=== PATIENT | male | born 1990 | race Caucasian/White ===

== ENCOUNTER 2025-01-17 16:48 | Outpatient (CLI) | payer BC, SELFPAY ==
--- NOTE | ~2025-01-17 | US_ITS ---
EXAMINATION: US retroperitoneal comp DATE: 01/17/2025 17:20 INDICATION: Hydronephrosis TECHNIQUE: Multiple ultrasound grayscale images of the kidneys were obtained. COMPARISON: None. FINDINGS: The right kidney measures 10.0 x 4.2 x 5.1 cm. The left kidney measures 10.1 x 5.0 x 4.2 cm. The kidn eys demonstrate normal echogenicity. There is no hydronephrosis in either kidney. No stones identifi ed. The bladder is normal. IMPRESSION: 1. Normal kidneys without hydronephrosis. Reviewed, dictated and finalized at location B.
--- OUTSIDE RECORDS SUMMARY | 2025-01-17 17:14 | XMS_ITS | Clinical Summary ---
Author Organization [facility] / [facility] Address [facility] [address] Care Team Providers Care Scaffold Setter Name Role Phone Jennifer Lafleur DO Primary Care Provider [phone] Aparna Foster MD Unavailable [phone] Allergies No known active allergies Medications No known medications Active Problems Problem Noted Date Diagnosed Date Eosinophilic esophagitis 05/08/2021 Clavicle pain 10/03/2014 Pain of foot 03/07/2014 Encounters Date Type Department Care Team Description 12/29/2024 Scan HEALTH INFO SRVCS Scanned, Doc Med Group 11/25/2024 Results Follow-Up [facility] Family Medicine - [address], [address] [place] [phone] Jennifer Lafleur DO US RETROPERITONEAL COMP 11/18/2024 7:00 AM CDT - 11/18/2024 11:59 PM CDT Hospital Encounter [facility] Ultrasound [address] [place] [address] Jennifer Lafleur DO Discharge Disposition: Home or Self Care (Routine Discharge) 11/18/2024 Travel 11/15/2024 3:45 PM CDT Office Visit [facility] Physical Therapy [address] [place] [address] Jennifer Lafleur DO Meyer, Debra S, STATE APPELLATE CLERK Cerv Radiculitis 11/15/2024 Travel 11/15/2024 MyChart Message Enc [facility] [address], [address] [place] [address] Jennifer Lafleur DO Vaccinations for travel 11/11/2024 Telephone [facility] [address], [address] [place] [address] Jennifer Lafleur DO MRI Results (C-spine and T-spine ) 11/08/2024 3:45 PM CDT Office Visit [facility] Physical Therapy [address] [place] [id number] Jennifer Lafleur DO Meyer, Debra S, STATE APPELLATE CLERK Cerv Radiculitis 11/08/2024 Travel 11/05/2024 8:06 AM CDT - 11/05/2024 11:59 PM CDT Hospital Encounter [facility] Open MRI [address] [place] [address] Jennifer Lafleur DO Discharge Disposition: Home or Self Care (Routine Discharge) 11/05/2024 Travel 11/01/2024 3:30 PM CDT Office Visit [facility] Physical [facility] [address] [place] [id number] Jennifer Lafleur DO Tolle, Lisa C, PT Cerv Radiculitis 11/01/2024 Travel 10/26/2024 Telephone [facility] [address] [place] [address] Jennifer Lafleur DO Results (Sed rate, Uric acid, C-reactive protein, CMP, Rheumatoid factor, Vitamin D, CBC, Xray cervical and thoracic ) 10/25/2024 2:20 PM CDT - 10/25/2024 11:59 PM CDT Hospital Encounter [facility] Laboratory [address] [place] [address] Janiya, Jennifer, DO Discharge Disposition: Home or Self Care (Routine Discharge) 10/25/2024 2:19 PM CDT Hospital Encounter [facility] [address] [place] [address] Radha Lafleura, DO Discharge Disposition: Home or Self Care (Routine Discharge) 10/25/2024 1:00 PM CDT Office Visit [facility] Family Medicine - [place] [address] [place] [address] Jennifer Lafleur, DO Back Pain (Pt here for extreme back pain in upper back area and lower neck area on left side. [facility] lab) 10/25/2024 Scan [facility] HEALTH INFO SRVCS Scanned, Doc Med Group 10/25/2024 Travel from Last 3 Months Immunizations Immunization Administration Dates Next Due Fluzone 6 Months+ Quad (0.5 mL Prefilled Syringe) 07/08/2023 Fluzone Intradermal (IIV3) 08/11/2012 Hepatitis B 1992,1992,1992 Influenza (Generic) 08/11/2012 Influenza Adult (Generic) 05/01/2020 MENINGOCOCCAL A C Y&W-135 ol igosaccharide (MENVEO) 01/11/2009 MMR (Generic) 11/02/1996,06/12/1993 MODERNA COVID-19 (12+) MRNA, LNP-S, PF, 100 MCG/ 0.5 ML DOSE 12/01/2020,11/03/2020 PFIZER COVID-19 (12+) MRNA, LNP-S, PF, YENI-SUCROSE, 30 MCG/0.3 ML (COMIRNATY) 07/08/2023 Tdap (Generic) 02/11/2006 Family History Medical History Relation Comments Heart Disease Father Hypertension Father skin cancer Maternal Grandfather Rheumatoid Arthritis Maternal Grandmother Rheumatoid Arthritis Maternal Uncle Asthma Mother Diabetes Paternal Grandfather Hypertension Paternal Grandfather Multiple Sclerosis Paternal Grandmother Relation Status Comments Father Maternal Grandfather Maternal Grandmother Maternal Uncle Mother Paternal Grandfather Paternal Grandmother Social History Tobacco Use Types Packs/Day Years Used Date Smoking Tobacco: Never Smokeless Tobacco: Never Tobacco Cessation:Counseling Given: No Alcohol Use Standard Drinks/Week Comments Yes 0 (1 standard drink = 0.6 oz pur e alcohol) occasional PHQ-2 Answer Date Recorded Patient Health Questionnaire-2 Score 0 10/25/2024 Sex and Gender Information Value Date Recorded Sex Assigned at Male 10/25/2024 1:33 PM CDT Legal Sex Male 8:03 PM CDT Gender Identity Male 10/25/2024 1:33 PM CDT Sexual Orientation Not on file Last Filed Vital Signs Vital Sign Reading Time Taken Comments Blood Pressure 120/84 10/25/2024 1:33 PM CDT Pulse 78 10/25/2024 1:33 PM CDT Temperature 36.5 C (97.7 F) 10/25/2024 1:33 PM CDT Respiratory Rate 18 10/25/2024 1:33 PM CDT Oxygen Saturation 96% 10/25/2024 1:33 PM CDT Inhaled Oxygen Concentration - - Weight 101.9 kg (224 lb 9.6 oz) 10/25/2024 1:33 PM CDT Height 188 cm (6' 2) 10/25/2024 1:33 PM CDT Body Mass Index 28.84 10/25/2024 1:33 PM CDT Plan of Treatment Upcoming Encounters Date Type Department Care Team (Late st Contact Info) Description 02/10/2025 2:20 PM CDT Office Visit [facility]ialty [facility] - [facility] [facility] [address] [place] [id number] Dayna Metzger MD [address] [facility] [place] [address] [place] [address] Health Maintenance Due Date Last Done Comments Hepatitis C 01/04/2010 DTaP, Tdap and Td Vaccines ( 2 - Td or Tdap) 02/12/2016 02/11/2006 Annual Physical 11/01/2021 11/01/2020 COVID-19 Vaccine (2023-2 5 season) 2024 07/08/2023, 12/01/2020, 11/03/2020 Hepatitis B Vaccines Completed 1992, 1992, 1992 Meningococcal Vaccine Completed 01/11/2009 PHQ-2 (Physician [place]) Completed 10/25/2024 HPV Vaccines Aged Out No longer eligi ble based on patient's age to complete this topic Meningococcal B Vaccine Aged Out No l onger eligible based on patient's age to complete this topic Pneumococcal Vaccine: Pediatrics (0 to 5 Years) and At-Risk Patients (6 to 49 Years) Aged Out No longer eligible b ased on patient's age to complete this topic RSV Immunizations Under 20 Months Aged Out No longer eligible b ased on patient's age to complete this topic Procedures Procedure Name Priority Date/Time Associated Diagnosis Comments US RETROPERITONEAL COMP Routine 11/19/19 8:26 AM CDT CKD (chronic kidney disease) stage 2, GFR 60-89 ml/min Elevated creatine kinase MRI THOR SPINE WO CON CHRISTIANE 11/05/2024 9:39 AM CDT Vitamin D deficiency Neck pain Acute left-sided thoracic back pain Tingling MRI CERV SPINE WO CON CHRISTIANE 11/05/2024 8:58 AM CDT Vitamin D deficiency Neck pain Acute left-sided thoracic back pain Tingling XR THOR SPINE 3V Routine 10/25/2024 2:53 PM CDT Vitamin D deficiency Neck pain Acute left-sided thoracic back pain Tingling XR CERV SPINE 3V Routine 10/25/2024 2:53 PM CDT Vitamin D deficiency Neck pain Acute left-sided thoracic back pain [place]ing[place] C-REACTIVE PROTEIN Routine 10/25/2024 2: 26 PM CDT Neck pain Acute left-sided thoracic back pain URIC ACID BLOOD Routine 10/25/2024 2:26 PM CDT Vitamin D deficiency Neck pain Acute left-sided thoracic back pain Ting[place] VITAMIN D, 25 OH Routine 10/25/2024 2:26 PM CDT Vitamin D deficiency SED RATE, ERYTHROCYTE (ESR) Routine 10/25/2024 2:26 PM CDT Vitamin D deficiency Neck pain Acute left-sided thoracic back pain [place] RHEUMATOID FACTOR, QUANT Routine 10/25/2024 2:26 PM CDT Vitamin D deficiency Neck pain Acute left-sided thoracic back pain [place]ling COMPREHENSIVE METABOLIC PANEL Routine 10/25/2024 2:26 PM CDT Vitamin D deficiency Neck pain Acute left-sided thoracic back pain Tingling CBC W/DIFF AUTOMATED Routine 10/25/2024 2:26 PM CDT Vitamin D deficiency Neck pain Acute left-sided thoracic back pain Tingling from Last 3 Months Results * US RETROPERITONEAL COMP (11/18/2024 8:26 AM CDT) Anatomical Region Laterality Modality Abdomen Ultrasound 11/25/2024 7:37 AM CDT Impressions 11/25/2024 7:39 AM CDT IMPRESSION: ===== 1. Mild right hydronephrosis with dilated proximal visualized right ureter. Distal ureteral obstruction is of concern. 2. No acute left renal or bladder abnormalities. Referred By: JENNIFER LAFLEUR Interpreted By: Vikram Cisneros MD, 11/25/2024 7:37 AM Narrative 11/25/2024 7:39 AM CDT [address] [address] EXAMINATION: Renal ultrasound EXAM DATE/TIME: 11/18/2024 7:13 AM REASON FOR EXAM: Chronic kidney disease, elevated creatine COMPARISON: None TECHNIQUE: Transabdominal ultrasound evaluation of the bilateral kidneys and bladder was performed for analysis of grayscale and color Doppler imaging characteristics. FINDINGS: The right kidney measures 10.3 x 4.5 x 4.5 cm per the left kidney measures 10.5 x 4.3 x 6.1 cm. Bladder contours are smooth. Both ureteral jets are seen. The IVC is patent. Visualized portion of liver is unremarkable. There is minimal hydronephrosis on the right with dilated proximal right ureter measuring up to 8.5 mm. No abnormal cystic or masslike lesions in the right kidney. Normal flow on Doppler imaging to the right kidney. Left kidney shows no hydronephrosis. There is normal flow to the left kidney on Doppler imaging. No abnormal cystic or masslike lesions are seen in the left kidney. Visualized portion of the spleen has normal grayscale appearance. No perinephric fluid collections on either side. ===== Procedure Note Vikram Cisneros MD - 11/25/[address] [address] EXAMINATION: Renal ultrasound EXAM DATE/TIME: 11/18/2024 7:13 AM REASON FOR EXAM: Chronic kidney disease, elevated creatine COMPARISON: None TECHNIQUE: Transabdominal ultrasound evaluation of the bilateral kidneysand bladder was performed for analysis of grayscale and color Dopplerimaging characteristics. FINDINGS: The right kidney measures 10.3 x 4.5 x 4.5 cm per the left kidney [id number] x 4.3 x 6.1 cm. Bladder contours are smooth. Both ureteral jets areseen. The IVC is patent. Visualized portion of liver is unremarkable.There is minimal hydronephrosis on the right with dilated proximal rightureter measuring up to 8.5 mm. No abnormal cystic or masslike lesions inthe right kidney. Normal flow on Doppler imaging to the right kidney.Left kidney shows no hydronephrosis. There is normal flow to the leftkidney on Doppler imaging. No abnormal cystic or masslike lesions areseen in the left kidney. Visualized portion of the spleen has normalgrayscale appearance. No perinephric fluid collections on either side. ===== IMPRESSION: ===== 1. Mild right hydronephrosis with dilated proximal visualized rightureter. Distal ureteral obstruction is of concern. 2. No acute left renal or bladder abnormalities. Referred By: JENNIFER LAFLEUR Interpreted By: Vikram Cisneros MD, 11/25/2024 7:37 AM Jennifer Lafleur DO ULTRASOUND Final Result * MRI THOR SPINE WO CON (11/05/2024 9:39 AM CDT) Anatomical Region Laterality Modality Spine Magnetic Resonan ce 11/05/2024 9:27 AM CDT Impressions 11/05/2024 9:55 AM CDT IMPRESSION: 1. Mild multilevel cervical and thoracic spondylosis, as described above. 2. Prominence of the central canal of the thoracic spinal cord measuring up to 2 mm at T6. This prominence of the central canal tapers from the T4 to the T9 level. Findings could be related to canal prominence versus a small syrinx. Consider follow-up MRI thoracic spine with contrast in 6 months for further characterization, unless symptoms warrant sooner characterization. Ordered By: JENNIFER LAFLEUR Interpreted By: Wilfrido Mayer MD, 11/05/2024 9:27 AM Narrative 11/05/2024 9:55 AM CDT [address] [address] EXAMINATION: MRI cervical spine, MRI thoracic spine [id number] EXAM DATE/TIME: 11/05/2024 8:32 AM REASON FOR EXAM: neck and upper back pain COMPARISON: Cervical and thoracic spine radiographs 10/25/2024 TECHNIQUE: Mutiplanar, multisequence MRI of the cervical and thoracic spine were obtained without the use of an IV contrast agent. FINDINGS: MRI CERVICAL SPINE: There is straightening of the normal cervical lordosis that is likely positional. The cervical vertebral bodies and facets are well aligned. The cervical vertebral body heights are preserved. There is intervertebral disc height loss at C5-6 with endplate degenerative change at this level. The cervical spinal cord has a normal signal throughout its course. C2-3: No significant spinal canal or neural foraminal stenosis. C3-4: No significant spinal canal or neural foraminal stenosis. C4-5: No significant spinal canal stenosis. Uncovertebral joint hypertrophy. Mild to moderate left neural foraminal stenosis. Mild right neural foraminal stenosis. C5-6: Disc bulge with right paracentral disc protrusion impressing the ventral thecal sac. Mild to moderate spinal canal stenosis. Uncovertebral joint hypertrophy. Mild to moderate left neural foraminal stenosis. Mild right neural foraminal stenosis. C6-7: No significant spinal canal or neural foraminal stenosis. C7-T1: No significant spinal canal or neural foraminal stenosis. MRI THORACIC SPINE: There are 12 rib-bearing thoracic type vertebral bodies. Thoracic vertebral bodies and facets are well aligned. The thoracic vertebral body heights are preserved. Facet joint hypertrophy contributes to to moderate right T1 to neural foraminal stenosis and mild left T1 to neural foraminal stenosis. Facet joint hypertrophy contributes to mild left T6-7 and bilateral T7-8 neural foraminal stenosis. Mild to moderate right greater than left T8-9 stenosis secondary to facet joint hypertrophy. The thoracic spinal cord otherwise has a normal signal throughout its course. There is prominence of the central canal of the thoracic spinal cord measuring up to 2 mm at T6 (best seen on series 8 image 24). This prominence of the central canal tapers from the T4 to the T9 level. Procedure Note Wilfrido Mayer MD - 11/05/[address] [address] EXAMINATION: MRI cervical spine, MRI thoracic spine [id number] EXAM DATE/TIME: 11/05/2024 8:32 AM REASON FOR EXAM: neck and upper back pain COMPARISON: Cervical and thoracic spine radiographs 10/25/2024 TECHNIQUE: Mutiplanar, multisequence MRI of the cervical and thoracicspine were obtained without the use of an IV contrast agent. FINDINGS: MRI CERVICAL SPINE: There is straightening of the normal cervical lordosisthat is likely positional. The cervical vertebral bodies and facets arewell aligned. The cervical vertebral body heights are preserved. There isintervertebral disc height loss at C5-6 with endplate degenerative changeat this level. The cervical spinal cord has a normal signal throughout itscourse. C2-3: No significant spinal canal or neural foraminal stenosis. C3-4: No significant spinal canal or neural foraminal stenosis. C4-5: No significant spinal canal stenosis. Uncovertebral jointhypertrophy. Mild to moderate left neural foraminal stenosis. Mild rightneural foraminal stenosis. C5-6: Disc bulge with right paracentral disc protrusion impressing theventral thecal sac. Mild to moderate spinal canal stenosis. Uncovertebraljoint hypertrophy. Mild to moderate left neural foraminal stenosis. Mildright neural foraminal stenosis. C6-7: No significant spinal canal or neural foraminal stenosis. C7-T1: No significant spinal canal or neural foraminal stenosis. MRI THORACIC SPINE: There are 12 rib-bearing thoracic type vertebralbodies. Thoracic vertebral bodies and facets are well aligned. Thethoracic vertebral body heights are preserved. Facet joint hypertrophycontributes to to moderate right T1 to neural foraminal stenosis and mildleft T1 to neural foraminal stenosis. Facet joint hypertrophy contributesto mild left T6-7 and bilateral T7-8 neural foraminal stenosis. Mild tomoderate right greater than left T8-9 stenosis secondary to facet jointhypertrophy. The thoracic spinal cord otherwise has a normal signalthroughout its course. There is prominence of the central canal of thethoracic spinal cord measuring up to 2 mm at T6 (best seen on series 8image 24). This prominence of the central canal tapers from the T4 to theT9 level. IMPRESSION: 1. Mild multilevel cervical and thoracic spondylosis, as describedabove. 2. Prominence of the central canal of the thoracic spinal cord measuringup to 2 mm at T6. This prominence of the central canal tapers from the T4to the T9 level. Findings could be related to canal prominence versus asmall syrinx. Consider follow-up MRI thoracic spine with contrast in 6months for further characterization, unless symptoms warrant soonercharacterization. Ordered By: JENNIFER LAFLEUR Interpreted By: Wilfrido Mayer MD, 11/05/2024 9:27 AM us Jennifer Lafleur DO MRI Final Result * MRI CERV SPINE WO CON (11/05/2024 8:58 AM CDT) Anatomical Region Laterality Modality Spine Magnetic Resonan ce 11/05/2024 9:27 AM CDT Impressions 11/05/2024 9:55 AM CDT IMPRESSION: 1. Mild multilevel cervical and thoracic spondylosis, as described above. 2. Prominence of the central canal of the thoracic spinal cord measuring up to 2 mm at T6. This prominence of the central canal tapers from the T4 to the T9 level. Findings could be related to canal prominence versus a small syrinx. Consider follow-up MRI thoracic spine with contrast in 6 months for further characterization, unless symptoms warrant sooner characterization. Ordered By: JENNIFER LAFLEUR Interpreted By: Wilfrido Mayer MD, 11/05/2024 9:27 AM Narrative 11/05/2024 9:55 AM CDT [address] [address] EXAMINATION: MRI cervical spine, MRI thoracic spine [id number] EXAM DATE/TIME: 11/05/2024 8:32 AM REASON FOR EXAM: neck and upper back pain COMPARISON: Cervical and thoracic spine radiographs 10/25/2024 TECHNIQUE: Mutiplanar, multisequence MRI of the cervical and thoracic spine were obtained without the use of an IV contrast agent. FINDINGS: MRI CERVICAL SPINE: There is straightening of the normal cervical lordosis that is likely positional. The cervical vertebral bodies and facets are well aligned. The cervical vertebral body heights are preserved. There is intervertebral disc height loss at C5-6 with endplate degenerative change at this level. The cervical spinal cord has a normal signal throughout its course. C2-3: No significant spinal canal or neural foraminal stenosis. C3-4: No significant spinal canal or neural foraminal stenosis. C4-5: No significant spinal canal stenosis. Uncovertebral joint hypertrophy. Mild to moderate left neural foraminal stenosis. Mild right neural foraminal stenosis. C5-6: Disc bulge with right paracentral disc protrusion impressing the ventral thecal sac. Mild to moderate spinal canal stenosis. Uncovertebral joint hypertrophy. Mild to moderate left neural foraminal stenosis. Mild right neural foraminal stenosis. C6-7: No significant spinal canal or neural foraminal stenosis. C7-T1: No significant spinal canal or neural foraminal stenosis. MRI THORACIC SPINE: There are 12 rib-bearing thoracic type vertebral bodies. Thoracic vertebral bodies and facets are well aligned. The thoracic vertebral body heights are preserved. Facet joint hypertrophy contributes to to moderate right T1 to neural foraminal stenosis and mild left T1 to neural foraminal stenosis. Facet joint hypertrophy contributes to mild left T6-7 and bilateral T7-8 neural foraminal stenosis. Mild to moderate right greater than left T8-9 stenosis secondary to facet joint hypertrophy. The thoracic spinal cord otherwise has a normal signal throughout its course. There is prominence of the central canal of the thoracic spinal cord measuring up to 2 mm at T6 (best seen on series 8 image 24). This prominence of the central canal tapers from the T4 to the T9 level. Procedure Note Wilfrido Mayer MD - 11/05/[address] [address] EXAMINATION: MRI cervical spine, MRI thoracic spine [id number] EXAM DATE/TIME: 11/05/2024 8:32 AM REASON FOR EXAM: neck and upper back pain COMPARISON: Cervical and thoracic spine radiographs 10/25/2024 TECHNIQUE: Mutiplanar, multisequence MRI of the cervical and thoracicspine were obtained without the use of an IV contrast agent. FINDINGS: MRI CERVICAL SPINE: There is straightening of the normal cervical lordosisthat is likely positional. The cervical vertebral bodies and facets arewell aligned. The cervical vertebral body heights are preserved. There isintervertebral disc height loss at C5-6 with endplate degenerative changeat this level. The cervical spinal cord has a normal signal throughout itscourse. C2-3: No significant spinal canal or neural foraminal stenosis. C3-4: No significant spinal canal or neural foraminal stenosis. C4-5: No significant spinal canal stenosis. Uncovertebral jointhypertrophy. Mild to moderate left neural foraminal stenosis. Mild rightneural foraminal stenosis. C5-6: Disc bulge with right paracentral disc protrusion impressing theventral thecal sac. Mild to moderate spinal canal stenosis. Uncovertebraljoint hypertrophy. Mild to moderate left neural foraminal stenosis. Mildright neural foraminal stenosis. C6-7: No significant spinal canal or neural foraminal stenosis. C7-T1: No significant spinal canal or neural foraminal stenosis. MRI THORACIC SPINE: There are 12 rib-bearing thoracic type vertebralbodies. Thoracic vertebral bodies and facets are well aligned. Thethoracic vertebral body heights are preserved. Facet joint hypertrophycontributes to to moderate right T1 to neural foraminal stenosis and mildleft T1 to neural foraminal stenosis. Facet joint hypertrophy contributesto mild left T6-7 and bilateral T7-8 neural foraminal stenosis. Mild tomoderate right greater than left T8-9 stenosis secondary to facet jointhypertrophy. The thoracic spinal cord otherwise has a normal signalthroughout its course. There is prominence of the central canal of thethoracic spinal cord measuring up to 2 mm at T6 (best seen on series 8image 24). This prominence of the central canal tapers from the T4 to theT9 level. IMPRESSION: 1. Mild multilevel cervical and thoracic spondylosis, as describedabove. 2. Prominence of the central canal of the thoracic spinal cord measuringup to 2 mm at T6. This prominence of the central canal tapers from the T4to the T9 level. Findings could be related to canal prominence versus asmall syrinx. Consider follow-up MRI thoracic spine with contrast in 6months for further characterization, unless symptoms warrant soonercharacterization. Ordered By: JENNIFER LAFLEUR Interpreted By: Wilfrido Mayer MD, 11/05/2024 9:27 AM us Jennifer Lafleur DO MRI Final Result * XR THOR SPINE 3V (10/25/2024 2:53 PM CDT) Anatomical Region Laterality Modality Spine Radiographic [place] ging 10/26/2024 4:55 AM CDT Impressions 10/26/2024 4:57 AM CDT IMPRESSION: No acute osseous abnormality of the thoracic spine. Referred By: Interpreted By: Connor Villa MD, 10/26/2024 4:55 AM Narrative 10/26/2024 4:57 AM CDT [address] [address] Examination: XR THOR SPINE 3V Exam time: 10/25/2024 2:29 PM Clinical history: Thoracic pain. Comparison: No comparison. Technique: 3 views of the thoracic spine. Findings: There is normal alignment of the thoracic spine. Vertebral body heights and disc spaces appear normal. No fracture or destructive bone lesions noted. Procedure Note Connor Villa MD - 10/26/[address] [address] Examination: XR THOR SPINE 3V Exam time: 10/25/2024 2:29 PM Clinical history: Thoracic pain. Comparison: No comparison. Technique: 3 views of the thoracic spine. Findings: There is normal alignment of the thoracic spine. Vertebral body heightsand disc spaces appear normal. No fracture or destructive bone lesionsnoted. IMPRESSION: No acute osseous abnormality of the thoracic spine. Referred By: Interpreted By: Connor Villa MD, 10/26/2024 4:55 AM us Jennifer Janiya DO GENERAL IMAGING Final Result * XR CERV SPINE 3V (10/25/2024 2:53 PM CDT) Anatomical Region Laterality Modality Spine Radiographic [place] ging 10/26/2024 4:57 AM CDT Impressions 10/26/2024 4:59 AM CDT IMPRESSION: No acute osseous abnormality of the cervical spine. Referred By: Interpreted By: Connor Villa MD, 10/26/2024 4:57 AM Narrative 10/26/2024 4:59 AM CDT [address] [address] Examination: XR CERV SPINE 3V Exam time: 10/25/2024 2:29 PM Clinical history: Pain. Comparison: No comparison. Technique: 3 views of the cervical spine. Findings: Straightening and slight reversal of the normal cervical lordosis. Cervical vertebral body heights and disc spaces appear preserved. The lateral masses are well aligned with the odontoid process. No fracture or destructive bone lesion noted. Procedure Note Connor Villa MD - 10/26/[address] [address] Examination: XR CERV SPINE 3V Exam time: 10/25/2024 2:29 PM Clinical history: Pain. Comparison: No comparison. Technique: 3 views of the cervical spine. Findings: Straightening and slight reversal of the normal cervical lordosis.Cervical vertebral body heights and disc spaces appear preserved. Thelateral masses are well aligned with the odontoid process. No fracture ordestructive bone lesion noted. IMPRESSION: No acute osseous abnormality of the cervical spine. Referred By: Interpreted By: Connor Villa MD, 10/26/2024 4:57 AM us Jennifer Janiya DO GENERAL IMAGING Final Result * RHEUMATOID FACTOR, QUANT (10/25/2024 2:26 PM CDT) RHEUMATOID FACTOR <10 <15 IU/ML 10/25/2024 3:03 PM CDT [facility] 10/25/2024 2:26 PM CDT us Jennifer Janiya DO LABORATORY Final Result [facility] [address] [place] [address], [place] [phone] * SED RATE, ERYTHROCYTE (ESR) (10/25/2024 2:26 PM CDT) [facility] ESR <1 <15 MM/HR 10/25/2024 5:04 PM CDT [facility] Comment:Testing performed on [employer] iSED. 10/25/2024 2:26 PM CDT us Jennifer Janiya DO LABORATORY Final Result [facility] [address] [place] [address], [place] [phone] * (ABNORMAL) COMPREHENSIVE METABOLIC PANEL (10/25/2024 2:26 PM CDT) [facility] GLUCOSE 95 70 - 99 MG/DL 10/25/2024 3:03 PM CDT [facility] BUN 14 7 - 18 MG/DL 10/25/2024 3:03 PM CDT [facility] CREATININE S/P/B 1.39(H) 0.7 - 1.3 MG/DL 10/25/2024 3:03 PM CDT [facility] SODIUM S/P/B 137 136 - 145 MMOL/L 10/25/2024 3:03 PM CDT [facility] POTASSIUM S/P/B 3.9 3.5 - 5.1 MMOL/L 10/25/2024 3:03 PM CDT [facility] CHLORIDE S/P/B 105 97 - 115 MMOL/L 10/25/2024 3:03 PM CDT [facility] CO2 28.9 21 - 32 MMOL/L 10/25/2024 3:03 PM CDT [facility] CALCIUM S/P/B 9.1 8.5 - 10.1 MG/DL 10/25/2024 3:03 PM T [facility] BILIRUBIN TOTAL S/P/B 0.7 0.2 - 1.2 MG/DL 10/25/2024 3:03 PM T [facility] Comment: THIS ASSAY IS NOT RECOMMENDED FOR PATIENTS UNDERGOING TREATMENT WITH ELTROMBOPAG DUE TO THE POTENTIAL FOR FALSELY ELEVATED RESULTS. TOTAL PROTEIN S/P/B 7.4 6.4 - 8.2 G/DL 10/25/2024 3:03 PM T [facility] ALBUMIN S/P/B 4.3 3.4 - 5.0 G/DL 10/25/2024 3:03 PM T [facility] AST 15 15 - 37 U/L 10/25/2024 3:03 PM [facility] ALT 23 16 - 60 U/L 10/25/2024 3:03 PM T [facility] ALKALINE PHOSPHATASE S/P/B 88 50 - 136 U/L 10/25/2024 3:03 PM T [facility] ANION GAP 3.1 2 - 10 MMOL/L 10/25/2024 3:03 PM [facility] BUN CREATININE RATIO 10.1 6 - 26 10/25/2024 3:03 PM [facility] A/G RATIO 1.4 1.0 - 2.0 RATIO 10/25/2024 3:03 PM [facility] GFR ESTIMATE 69(L) >90 ML/MIN/1.7 3 M2 10/25/2024 3:03 PM [facility] Comment: NOTE: eGFR is not calculated for patients <18 years of age or gender unknown. This is an estimated GFR calculation using the new CKD EPI creatinine equation without race and so does not require a correction factor for race. This estimated GFR should not be used for calculating drug doses. 10/25/2024 2:26 PM CDT Jennifer Janiya DO LABORATORY Final Result Performing Organization Address City/[facility]/ZIP Co de Phone Number [facility] [address] [place] [address], [place] [phone] * C-REACTIVE PROTEIN (10/25/2024 2:26 PM CDT) Pathologist [facility] C-REACTIVE PROTEIN <0.29 <0.29 mg/dL 10/25/2024 3:03 PM CDT [facility] 10/25/2024 2:26 PM CDT Jennifer Janiya DO LABORATORY Final Result Performing Organization Address City/[facility] Co de Phone Number [facility] [address] [place] [address], [place] [phone] * CBC W/DIFF AUTOMATED (10/25/2024 2:26 PM CDT) Pathologist [facility] WBC 4.89 4.5 - 11.0 x10'3/uL 10/25/2024 2:42 PM CDT [facility] RBC 5.24 4.70 - 6.10 x10'6/uL 10/25/2024 2:42 PM CDT [facility] HGB 15.7 14.0 - 18.0 G/DL 10/25/2024 2:42 PM CDT [facility] HCT 45.0 43.0 - 54.0 % 10/25/2024 2:42 PM CDT [facility] MCV 85.9 80.0 - 94.0 FL 10/25/2024 2:42 PM CDT [facility] MCH 30.0 27.0 - 31.0 PG 10/25/2024 2:42 PM CDT [facility] MCHC 34.9 32.0 - 36.0 G/DL 10/25/2024 2:42 PM CDT [facility] RDW 11.8 11.5 - 14.5 % 10/25/2024 2:42 PM CDT [facility] PLT 199 130 - 400 x10'3/uL 10/25/2024 2:42 PM CDT [facility] MPV 10.6 9.3 - 12.2 FL 10/25/2024 2:42 PM CDT [facility] DIFFERENTIAL TYPE AUTOMATED DIFFERENTIAL 10/25/2024 2:42 PM CDT [facility] NEUTROPHILS % 57.9 % 10/25/2024 2:42 PM CDT [facility] LYMPHOCYTES % 29.2 % 10/25/2024 2:42 PM CDT [facility] MONOCYTES % 7.8 % 10/25/2024 2:42 PM CDT [facility] EOSINOPHILS 4.1 % 10/25/2024 2:42 PM CDT [facility] BASOPHILS 0.8 % 10/25/2024 2:42 PM CDT [facility] IMMATURE GRANS % 0.2 % 10/26/19 2:42 PM CDT [facility] ABS. NEUTROPHILS 2.83 1.80 - 7.70 x10'3/uL 10/25/2024 2:42 PM CDT [facility] ABS. LYMPHOCYTES 1.43 1.00 - 4.80 x10'3/uL 10/25/2024 2:42 PM CDT [facility] ABS. MONOCYTES 0.38 0.30 - 0.82 x10'3/uL 10/25/2024 2:42 PM CDT [facility] ABS. EOSINOPHILS 0.20 0.04 - 0.54 x10'3/uL 10/25/2024 2:42 PM CDT [facility] ABS. BASOPHILS 0.04 0.01 - 0.08 x10'3/uL 10/25/2024 2:42 PM CDT [facility] ABS. IMMATURE GRANULOCYTES 0.01 0.00 - 0.49 x10'3/uL 10/25/2024 2:42 PM CDT [facility] 10/25/2024 2:26 PM CDT Jennifer Janiya DO LABORATORY Final Result Performing Organization Address City/[facility]/ZIP Co de Phone Number [facility] [address] [place] [address], [place] [phone] * (ABNORMAL) VITAMIN D, 25 OH (10/25/2024 2:26 PM CDT) VITAMIN D 25 HYDROXY S/P/B 25(L) 30 - 100 NG/ML 10/25/2024 3:02 PM CDT [facility] Comment: INTERPRETATION DEFICIENT <20 INSUFFICIENT 20-29 SUFFICIENT 30-100 10/25/2024 2:26 PM CDT us Jennifer Janiya DO LABORATORY Final Result [facility] [address] [place] [address], [place] [phone] * URIC ACID BLOOD (10/25/2024 2:26 PM CDT) URIC ACID 6.3 3.5 - 7.2 MG/DL 10/25/2024 3:03 PM CDT [facility] 10/25/2024 2:26 PM CDT Jennifer Lafleur DO LABORATORY Final Result [facility] [address] [place] [address], [place] [phone] from Last [address] [facility] Care Teams Scaffold Setter Relationship Specialty Start Date End Date Jennifer Lafleur DO [facility] [place] [address] PCP - General FAMILY PRACTICE 09/12/20 Aparna Foster MD [address] [id number] GASTROENTEROLOGY 10/09/21
--- OUTSIDE RECORDS SUMMARY | 2025-01-17 17:14 | XMS_ITS | Clinical Summary ---
Author Organization [facility] Address [address] [place] [address] Care Team Providers Care Independent Insurance Adjuster Name Role Phone Jennifer Denson DO Primary Care Provider [phone] Allergies No known active allergies Medications meloxicam (MOBIC) 15 mg tabletIndication s:Left knee pain, unspecified chronicity Take 1 tablet (15 mg total) by mouth daily 30 tablet Active Additional Information Patient not taking.Reported on 01/11/2025 Active Problems Problem Noted Date Diagnosed Date Eosinophilic esophagitis 05/08/2021 Arthralgia of shoulder 10/03/2014 Clavicle pain 10/03/2014 Pain of foot 03/07/2014 Encounters Date Type Department Care Team Description 01/11/2025 1:00 PM CDT Office Visit [facility] Neurosurgery [address] [place] [address] Office [facility] [address] [place] [address] Austin Arevalo MD Neck pain; Spinal stenosis, cervical region; Spinal stenosis, thoracic 01/11/2025 12:26 PM CDT - 01/11/2025 11:59 PM CDT Hospital Encounter [facility] [address] [place] [address] [address] [place] [address] Thoracic spine pain; Neck pain Discharge Disposition: Discharge to home or self care 01/11/2025 Orders Only [facility] Neurosurgery [address] [place] [address] Medical Office [facility] [address] [place] [address] Austin Arevalo MD Neck pain (Primary Dx); Spinal stenosis, cervical region; Spinal stenosis, thoracic 01/11/2025 Orders Only [facility] Neurosurgery [facility] [address] [place] [phone] Austin Arevalo MD Thoracic spine pain (Primary Dx) 12/30/2024 11:03 AM CDT - 12/30/2024 11:59 PM CDT Hospital Encounter [facility] [address] [place] [address] Discharge Disposition: Discharge to home or self care 12/30/2024 11:03 AM CDT - 12/30/2024 11:59 PM CDT Hospital Encounter [facility] Radiology [facility] [address] [place] [address] Discharge Disposition: Discharge to home or self care 12/30/2024 11:02 AM CDT - 12/30/2024 11:59 PM CDT Hospital Encounter [facility] Radiology [facility] [address] [place] [address] Discharge Disposition: Discharge to home or self care 12/30/2024 11:01 AM CDT - 12/30/2024 11:59 PM CDT Hospital Encounter [facility] Rad[facility] ([facility]) [address] [place] [address] Discharge Disposition: Discharge to home or self care 12/30/2024 Orders Only [facility] Neurosurgery [address] [facility] Medical Office Building [address] [place] [phone] Austin Arevalo MD Thoracic spine pain (Primary Dx); Neck pain 11/12/2024 Telephone [facility] Scheduling [address] [place] [address] Susana Smith from Last 3 Months Immunizations Immunization Administration Dates Next Due Influenza, Quadrivalent, Spl it, Preservative Free, Intramuscular 07/08/2023 Influenza, Trivalent, Split, Preservative Free, Intradermal 08/11/2012 Surgical History Surgery Date Site/Laterality Comments HIP SURGERY 08/04/1998 - 08/03/1999 Fluid removal Medical History Medical History Date Comments Personal history of other di seases of the respiratory system Personal history of asthma - (Added by TW Conv) ADHD (attention deficit hype ractivity disorder) Asthma GERD (gastroesophageal reflux disease) Kidney stone Eosinophilic esophagitis Family History Medical History Relation Name Comments Alcohol abuse Father Gout Father Family history of gout - (Added by TW Conv) Heart disease Father Hypertension Father Family history of hypertension - (Added by TW Conv) Cancer Maternal Grandfather Heart disease Maternal Grandfather Family history of cardiac disorder - Relation: Grandfather (Added by TW Conv) Hypertension Other 1 Family history of hypertension - Relation: Grandparent (Added by TW Conv) Gout Other 2 Family history of gout - Relation: Grandparent (Added by TW Conv) Multiple sclerosis Other 3 Family hi story of multiple sclerosis - Relation: Grandmother (Added by TW Conv) Diabetes Other 4 Family history of diabetes mellitus - Relation: Grandparent (Added by TW Conv) Lung disease Other 5 Family history of lung disease - Relation: Grandparent (Added by TW Conv) Diabetes Paternal Grandfather Heart disease Paternal Grandfather Relation Name Status Comments Father Maternal Grandfather Other 1 Other 2 Other 3 Other 4 Other 5 Paternal Grandfather Social History Tobacco Use Types Packs/Day Years Used Date Smoking Tobacco: Never Smokeless Tobacco: Never Tobacco Cessation:Counseling Given: No Sex and Gender Information Value Date Recorded Sex Assigned at Not on file Legal Sex Male 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 Gender Identity Not on file Sexual Orientation Not on file Obstetrics History Last Filed Vital Signs Vital Sign Reading Time Taken Comments Blood Pressure - - Pulse - - Temperature - - Respiratory Rate - - Oxygen Saturation - - Inhaled Oxygen Concentration - - Weight 100.2 kg (221 lb) 01/11/2025 12:52 PM CDT Height 188 cm (6' 2) 01/11/2025 12:52 PM CDT Body Mass Index 28.37 01/11/2025 12:52 PM CDT Plan of Treatment Health Maintenance Due Date Last Done Comments Depression Screening 1992 Hepatitis C Screening 1992 Regular Well Visit/Exam 18-64 01/04/2010 DTaP/Tdap/Td Vaccine (2 - Td or Tdap) 02/12/2016 02/11/2006 Covid-19 Vaccine ( season) 2024 07/08/2023, 01/19/2022, 12/01/2020, Additional history exists Influenza Vaccine (Season Ended) 2025 07/08/2023, 05/01/2020, 08/11/2012 Hepatitis B Screening Completed 1992 , 1992, 1992 Varicella Vaccines Completed 11/02/1996, 06/12/1993 HPV Vaccines Aged Out No longer eligi ble based on patient's age to complete this topic Pneumococcal vaccine <65 Aged Out No longer eligible based on patient's age to complete this topic Procedures Procedure Name Priority Date/Time Associated Diagnosis Comments XR SPINE THORACIC 2 VIEWS Schedule Routine, Read Routine (OP Routine) 01/11/2025 12:45 PM CDT Thoracic spine pain XR SPINE CERVICAL W FLEXION AND EXTENSION 6 OR MORE VIEWS Schedule Routine, Read Routine (OP Routine) 01/11/2025 12:45 PM CDT Thoracic spine pain Neck pain XR TRANSFER OF OUTSIDE FILMS Routine 12/30/2024 11:03 AM CDT XR TRANSFER OF OUTSIDE FILMS Routine 12/30/2024 11:03 AM CDT NEURO MR OUTSIDE REFERENCE Routine 12/30/2024 11:02 AM CDT NEURO MR OUTSIDE REFERENCE Routine 12/30/2024 11:01 AM CDT from Last 3 Months Results * XR Spine Thoracic 2 View (01/11/2025 12:45 PM CDT) Anatomical Region Laterality Modality Spine N/A Computed Radiogr aphy 01/11/2025 12:5 9 PM CDT Impressions 01/11/2025 12:59 PM CDT 1. Normal radiographs of the cervical and thoracic spine. Electronically signed by: MD Priscilla Crowder 01/11/2025 12:59 PM CDT EXAMINATION: XR SPINE CERVICAL W FLEXION AND EXTENSION 6 OR MORE VIEWS, XR SPINE THORACIC 2 VIEWS HISTORY: Neck, back pain. FINDINGS: Comparison to 10/25/2024. Cervical spine: Vertebral body heights and disc spaces preserved. Sagittal alignment is normal in neutral position. No abnormal motion with bending. Bilateral neural foramen are patent. Thoracic spine: Vertebral body heights and disc spaces preserved. Sagittal alignment is normal. Procedure Note Pedro Luis Johnson MD - 01/11/2025 EXAMINATION: XR SPINE CERVICAL W FLEXION AND EXTENSION 6 OR MORE VIEWS, XR SPINE THORACIC 2 VIEWS HISTORY: Neck, back pain. FINDINGS: Comparison to 10/25/2024. Cervical spine: Vertebral body heights and disc spaces preserved. Sagittal alignment is normal in neutral position. No abnormal motion with bending. Bilateral neural foramen are patent. Thoracic spine: Vertebral body heights and disc spaces preserved. Sagittal alignment is normal. IMPRESSION: 1. Normal radiographs of the cervical and thoracic spine. Electronically signed by: Pedro Luis Johnson MD Austin Arevalo MD IMG XR PROCEDURES Final Re sult * XR Spine Cervical W Flexion And Extension 6 or More Views (01/11/2025 12:45 PM CDT) Anatomical Region Laterality Modality Spine N/A Computed Radiogr aphy 01/11/2025 12:5 9 PM CDT Impressions 01/11/2025 12:59 PM CDT 1. Normal radiographs of the cervical and thoracic spine. Electronically signed by: Pedro Luis Johnson MD Narrative 01/11/2025 12:59 PM CDT EXAMINATION: XR SPINE CERVICAL W FLEXION AND EXTENSION 6 OR MORE VIEWS, XR SPINE THORACIC 2 VIEWS HISTORY: Neck, back pain. FINDINGS: Comparison to 10/25/2024. Cervical spine: Vertebral body heights and disc spaces preserved. Sagittal alignment is normal in neutral position. No abnormal motion with bending. Bilateral neural foramen are patent. Thoracic spine: Vertebral body heights and disc spaces preserved. Sagittal alignment is normal. Procedure Note Pedro Luis Johnson MD - 01/11/2025 EXAMINATION: XR SPINE CERVICAL W FLEXION AND EXTENSION 6 OR MORE VIEWS, XR SPINE THORACIC 2 VIEWS HISTORY: Neck, back pain. FINDINGS: Comparison to 10/25/2024. Cervical spine: Vertebral body heights and disc spaces preserved. Sagittal alignment is normal in neutral position. No abnormal motion with bending. Bilateral neural foramen are patent. Thoracic spine: Vertebral body heights and disc spaces preserved. Sagittal alignment is normal. IMPRESSION: 1. Normal radiographs of the cervical and thoracic spine. Electronically signed by: Pedro Luis Johnson MD Austin Arevalo MD IMG XR PROCEDURES Final Re sult * XR Outside Reference (12/30/2024 11:03 AM CDT) Impressions [email or web address] - 12/30/2024 11:03 AM CDT These images are for Reference purposes only and have not been reviewed by [facility] Radiology. There will be no report generated by a [facility] Radiologist. Narrative [email or web address] - 12/30/2024 11:03 AM CDT EXAMINATION: Images For Reference Purposes Only Austin Arevalo MD IMG XR PROCEDURES Final Re sult Performing Organization Address [facility] Co de Phone Number [email or web address] * XR Outside Reference (12/30/2024 11:03 AM CDT) Impressions [email or web address] - 12/30/2024 11:03 AM CDT These images are for Reference purposes only and have not been reviewed by [facility] Radiology. There will be no report generated by a [facility] Radiologist. Narrative [email or web address] - 12/30/2024 11:03 AM CDT EXAMINATION: Images For Reference Purposes Only Austin Arevalo MD IMG XR PROCEDURES Final Re sult Performing Organization Address [facility] Co de Phone Number [email or web address] * Neuro MR Outside Reference (12/30/2024 11:02 AM CDT) Impressions [email or web address] - 12/30/2024 11:02 AM CDT These images are for Reference purposes only and have not been reviewed by [facility] Radiology. There will be no report generated by a [facility] Radiologist. Narrative [email or web address] - 12/30/2024 11:02 AM CDT EXAMINATION: Images For Reference Purposes Only us Austin Arevalo MD IMG MRI PROCEDURES Final R esult Performing Organization Address [facility] de Phone Number [email or web address] * Neuro MR Outside Reference (12/30/2024 11:01 AM CDT) Impressions [email or web address] - 12/30/2024 11:01 AM CDT These images are for Reference purposes only and have not been reviewed by [facility] Radiology. There will be no report generated by a [facility] Radiologist. Narrative [email or web address] - 12/30/2024 11:01 AM CDT EXAMINATION: Images For Reference Purposes Only us Austin Arevalo MD IM MRI PROCEDURES Final R esult Performing Organization Address [facility] de Phone Number [email or web address] from Last 3 Months Insurance [employer] [place] [employer] [place] Care Teams Independent Insurance Adjuster Relationship Specialty Start Date End Date Jennifer Denson DO [address] [facility] [address] [place] [address] PCP - General Family Medicine 09/26/23
--- OUTSIDE RECORDS SUMMARY | 2025-01-17 17:14 | XMS_ITS | Clinical Summary ---
Author Organization [facility] Address [address] [place] [address] Phone Care Team Providers Care Activities Specialist Name Role Phone Jennifer Denson DO Primary Care Provider [phone] Allergies No known active allergies Medications dextroamphetamin e-amphetamine (ADDERALL) 15 mg tablet Take 15 mg by mouth daily. Active pantoprazole (PROTONIX) 40 mg Tablet, Delayed Release (E.C.)Indication s:Gastroesophage al reflux disease, unspecified whether esophagitis present Take 1 Tablet (40 mg) by mouth daily. Take 30 minutes before breakfast 30 Tablet 6 Active Active Problems Problem Noted Date Diagnosed Date Eosinophilic esophagitis 05/08/2021 Family History Medical History Relation Name Comments Celiac Disease Neg Hx Colon Cancer Neg Hx Crohn's Disease Neg Hx Inflammatory Bowel Disease Neg Hx Ulcerative Colitis Neg Hx Social History Tobacco Use Types Packs/Day Years Used Date Smoking Tobacco: Never Smokeless Tobacco: Never Alcohol Use Standard Drinks/Week Comments Yes 0 (1 standard drink = 0.6 oz pur e alcohol) 2-4 weekly Sex and Gender Information Value Date Recorded Sex Assigned at Not on file Legal Sex Male 2:51 PM CDT Gender Identity Not on file Sexual Orientation Not on file Last Filed Vital Signs Vital Sign Reading Time Taken Comments Blood Pressure 112/71 05/04/2021 4:06 PM CDT Pulse 62 05/04/2021 4:06 PM CDT Temperature 36.1 C (97 F) 05/04/2021 3:48 PM CDT Respiratory Rate 18 05/04/2021 4:06 PM CDT Oxygen Saturation 100% 05/04/2021 4:06 PM CDT Inhaled Oxygen Concentration - - Weight 88.6 kg (195 lb 6.4 oz) 05/04/2021 2:39 P M CDT Height 188 cm (6' 2) 05/04/2021 2:39 PM CDT Body Mass Index 25.09 05/04/2021 2:39 PM CDT Plan of Treatment Health Maintenance Due Date Last Done Comments DTAP/TDAP/TD VACCINES (1 - Tdap) 01/04/2011 HEPATITIS B VACCINES (1 of 3 - 19+ 3-dose series) 01/04/2011 INFLUENZA VACCINE (#1) 2024 08/11/2012 COVID-19 Vaccine ( season) 2024 12/01/2020, 11/03/2020 HPV VACCINES Aged Out No longer eligi ble based on patient's age to complete this topic Insurance [facility] [employer] ACCESS CHOICE Advance Directives For more information, please contact: [phone] * Full Code (Latest Code Status on File) Date Activated Date Inactivated Comments 05/04/2021 2:32 PM 05/04/2021 6:21 PM Care Teams Activities Specialist Relationship Specialty Start Date End Date Jennifer Denson DO [address] [facility] [address] [place] [id number] PCP - General Family Practice 04/12/21
--- OUTSIDE RECORDS SUMMARY | 2025-01-17 17:14 | XMS_ITS | Referral Summary ---
Author Organization [facility] Address [facility] [place] [address] Care Team Providers Care Barometers Calibrator Name Role Phone Jennifer Denson DO Primary Care Provider [phone] Encounters Date Type Department Care Team Description 01/11/2025 Orders Only [facility] Neurosurgery [address] [place] [address] 4 [address] [place] [address] Austin Arevalo MD Neck pain (Primary Dx); Spinal stenosis, cervical region; Spinal stenosis, thoracic 01/11/2025 Orders Only [facility] Neurosurgery [address] [place] [address] 4 [address] [place] [address] Austin Arevalo MD Thoracic spine pain (Primary Dx) 01/11/2025 12:26 PM CDT - 01/11/2025 11:59 PM CDT Hospital Encounter [facility] [address] [place] [address] [address] [place] [id number] Thoracic spine pain; Neck pain Discharge Disposition: Discharge to home or self care 01/11/2025 1:00 PM CDT Office Visit [facility] Neurosurgery [address] [place] [address] 4 [address] [place] [address] Austin Arevalo MD Neck pain; Spinal stenosis, cervical region; Spinal stenosis, thoracic 12/30/2024 11:03 AM CDT - 12/30/2024 11:59 PM CDT Hospital Encounter [facility] [address] [place] [address] Discharge Disposition: Discharge to home or self care 12/30/2024 11:03 AM CDT - 12/30/2024 11:59 PM CDT Hospital Encounter [facility] Rad[facility] ([facility]) [address] [place] [address] Discharge Disposition: Discharge to home or self care 12/30/2024 11:02 AM CDT - 12/30/2024 11:59 PM CDT Hospital Encounter [facility] Radiology [facility] ([facility]) [address] [place] [address] Discharge Disposition: Discharge to home or self care 12/30/2024 11:01 AM CDT - 12/30/2024 11:59 PM CDT Hospital Encounter [facility] Radiology [facility] ([facility]) [address] [place] [address] Discharge Disposition: Discharge to home or self care 12/30/2024 Orders Only [facility] Neurosurgery [address] [facility] [address] [place] [address] Austin Arevalo MD Thoracic spine pain (Primary Dx); Neck pain 11/12/2024 Telephone [facility] Scheduling [facility] [place] [address] Susana Smith from Last 3 Months Allergies No known active allergies Medications meloxicam (MOBIC) 15 mg tabletIndication s:Left knee pain, unspecified chronicity Take 1 tablet (15 mg total) by mouth daily 30 tablet 4 Active Additional Information Patient not taking.Reported on 01/11/2025 Active Problems Problem Noted Date Diagnosed Date Eosinophilic esophagitis 05/08/2021 Arthralgia of shoulder 10/03/2014 Clavicle pain 10/03/2014 Pain of foot 03/07/2014 Immunizations Immunization Administration Dates Next Due Influenza, Quadrivalent, Spl it, Preservative Free, Intramuscular 07/08/2023 Influenza, Trivalent, Split, Preservative Free, Intradermal 08/11/2012 Social History Tobacco Use Types Packs/Day Years Used Date Smoking Tobacco: Never Smokeless Tobacco: Never Tobacco Cessation:Counseling Given: No Sex and Gender Information Value Date Recorded Sex Assigned at Not on file 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 There will be no report generated by a [facility] Radiologist. Narrative [facility] - 12/30/2024 11:03 AM CDT EXAMINATION: Images For Reference Purposes Only Austin Arevalo MD IMG XR PROCEDURES Final Re sult Performing Organization Address [facility] Co de Phone Number [email or web address] * XR Outside Reference (12/30/2024 11:03 AM CDT) Impressions [facility] - 12/30/2024 11:03 AM CDT These images are for Reference purposes only and have not been reviewed by [facility] Radiology. There will be no report generated by a [facility] Radiologist. Narrative RAD_P[facility] - 12/30/2024 11:03 AM CDT EXAMINATION: Images For Reference Purposes Only Austin Arevalo MD IMG XR PROCEDURES Final Re sult Performing Organization Address [facility] Co de Phone Number [email or web address] * Neuro MR Outside Reference (12/30/2024 11:02 AM CDT) Impressions [facility] - 12/30/2024 11:02 AM CDT These images are for Reference purposes only and have not been reviewed by [facility] Radiology. There will be no report generated by a [facility] Radiologist. Narrative [facility] - 12/30/2024 11:02 AM CDT EXAMINATION: Images For Reference Purposes Only us Austin Arevalo MD IMG MRI PROCEDURES Final R esult Performing Organization Address [facility] Co de Phone Number [email or web address] * Neuro MR Outside Reference (12/30/2024 11:01 AM CDT) Impressions [facility] - 12/30/2024 11:01 AM CDT These images are for Reference purposes only and have not been reviewed by [facility] Radiology. There will be no report generated by a [facility] Radiologist. Narrative RAD_[facility] - 12/30/2024 11:01 AM CDT EXAMINATION: Images For Reference Purposes Only us Austin Arevalo MD IMG MRI PROCEDURES Final R esult Performing Organization Address [facility] de Phone Number [email or web address] from Last 3 Months Insurance [email or web address] [place] Care Teams Barometers Calibrator Relationship Specialty Start Date End Date Jennifer Denson DO [address] [facility] [address] [place] [address] PCP - General Family Medicine 09/26/23
--- OUTSIDE RECORDS SUMMARY | 2025-01-17 17:14 | XMS_ITS | Encounter Summary ---
Author Organization [facility] Address [address] [place] [address] Care Team Providers Care Balancing Machine Operator Name Role Phone Jennifer Denson DO Primary Care Provider [phone] Aparna Foster MD Unavailable [phone] Encounter Details Date Type Department Care Team (Latest Contact Info) Description 11/15/2024 [employer] Message Enc [facility] Family Medicine - [address], [address] [place] [phone] Jennifer Denson DO [address] [place] [address] Vaccinations for travel Social History Tobacco Use Types Packs/Day Years [...] PM CDT Sexual Orientation Not on file documented as of this encounter Plan of Treatment Upcoming Encounters Date Type Department Care Team (Late st Contact Info) Description 02/10/2025 2:20 PM CDT Office Visit [facility] Medical [facility] - [address], [facility] [address] [place] [address] Dayna Metzger MD [address] [facility], [facility] [address] [place] [address] documented as of this encounter Visit Diagnoses Not on filedocumented in this encounter Additional Health Concerns Assessment Noted Time PHQ-9 Depression Total Score: 0 10/26/19 25 1:33 PM CDT documented as of this encounter Care Teams Balancing Machine Operator Relationship Specialty Start Date End Date Jennifer Denson DO [address] [place] [address] PCP - General FAMILY PRACTICE 09/12/20 Aparna Foster MD [address] [facility] [address] [place] [address] GASTROENTEROLOGY 10/09/21 documented as of this encounter
--- OUTSIDE RECORDS SUMMARY | 2025-01-17 17:14 | XMS_ITS | Clinical Summary ---
Author Organization [facility] Address [address] [place] [address] Care Team Providers Care Procurement Professional Name Role Phone Unavailable Primary Care Provider Unavailabl e Source Comments [facility],non-owned Affiliates and Associated Physician Practices is amultiple site organization consisting of ambulatory clinics and hospital sitesin [place], [place], [place] and [place]. This disclosure is being madepursuant to the Care Everywhere program and may not contain all information available regarding this patient. 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 Gender Identity Not on file Sexual Orientation Not on file Plan of Treatment Health Maintenance Due Date Last Done Comments HIV SCREENING 01/04/2007 HEPATITIS C SCREENING 12/31/2009 DTAP/TDAP/TD VACCINES (1 - Tdap) 01/04/2011 HEPATITIS B VACCINE (1 of 3 - 19+ 3-dose series) 01/04/2011 COVID-19 VACCINE (1 - 2023-2 5 season) 2024 DEPRESSION SCREENING 08/04/2024 INFLUENZA VACCINE (Season Ended) 2025 ZOSTER VACCINE (1 of 2) 01/04/2042 HIB VACCINE Aged Out No longer eligi ble based on patient's age to complete this topic HPV VACCINE Aged Out No longer eligi ble based on patient's age to complete this topic MENINGOCOCCAL (Group B) VACC INE SHARED DECISION-MAKING Aged Out No longer eligibl e based on patient's age to complete this topic MENINGOCOCCAL GROUPS A/C/Y/W VACCINE Aged Out No longer eligible b ased on patient's age to complete this topic PNEUMOCOCCAL VACCINE Aged Out No long er eligible based on patient's age to complete this topic
== END 2025-01-17 16:49 | disposition home or self-care (01) ==
PROVIDERS: PCP Family Medicine; Visit Provider Urology
DX: N13.30 Unspecified hydronephrosis (principal)
CPT/HCPCS: 76770